=== PATIENT | female | born 1960 | race Caucasian/White ===

== ENCOUNTER 2017-04-22 11:08 | Emergency (ER) | payer OTHER ==
[~2017-04-22] VITALS: Ht 177.8 cm; Wt 71.6 kg
[2017-04-22 11:09] VITALS: BP 152/90
[2017-04-22 11:53] LABS: WHITE BLOOD COUNT 4.7 x10^3/uL (3.4-10)
== END 2017-04-22 12:45 | disposition home or self-care (01) ==
LOC: ED 12:39
DX: L03.116 Cellulitis of left lower limb (principal)
CPT/HCPCS: 36415; 84550; 85025; 99284

== ENCOUNTER → 2018-12-01 | Outpatient (CLI) | payer BC ==
[~2018-12-01] MED LIST: BLOOD PRESSURE; HYDR12.517 PO; LOVA10TA PO
== END | disposition home or self-care (01) ==
LOC: CFH 13:00
PROVIDERS: ATTEND Family Medicine
DX: Z12.31 Encounter for screening mammogram for malignant neoplasm of breast (principal)
CPT/HCPCS: 77067